=== PATIENT | male | born 1965 | race Hispanic/Latino ===

== ENCOUNTER 2018-09-02 11:43 | Day surgery (SDC) | payer BC ==
[2018-08-30 19:20] VITALS: BMI 26.9
[2018-09-02] MEDS ORDERED: Lactated Ringer's 1,000 ML IV ONE (12:37)
--- NOTE | 2018-09-02 12:54 | CP.SDSHP ---
Same Day Surgery H & P - History Proposed Procedure: Right peroneus brevis tendon repair and platelet rich plasma injection Pre-Op Diagnosis: Right peroneus brevis tear - Allergies Allergies: Allergies No Known Allergies Allergy (Verified 09/02/18 12:00) - Physical Exam Vital Signs: Vital Signs 09/02/18 09/02/18 12:12 12:17 Temperature 98.1 F Pulse Rate 68 60 Respiratory 20 Rate Blood Pressure 132/80 O2 Sat by Pulse 97 Oximetry Heart: WNL Lungs: WNL - {Optional Preform as Required} Ortho: Other (no pain with palpation of the right lateral ankle, pain with ROM of the ankle joint) - Date & Time Date: 09/02/18 Time: 12:57 Short Stay Discharge - Short Stay Discharge Admitting Diagnosis/Reason for Visit: M76.71 Disposition: HOME/ ROUTINE Additional Instructions (Diet, Activity): -Patient in good/stable condition for discharge home -Pt to resume medications per medical reconciliation -Resume regular diet -Please keep dressing clean, dry, & intact to surgical site -Use plastic bag over bandage for showering -Wear post op shoe at all times when ambulating -Call clinic if you see signs of infection (redness, swelling, malodor) -Please make an appointment to see Dr. Boone in office/clinic within 1 week for post-op check Progress Note/Discharge Note with Instructions: - Patient evaluated bedside in recovery s/p right foot surgery - After surgical procedure patient in NAD - (+) Void, (+) Appetite - Capillary refill time <3s and NVS intact. - Patient denies complaints at this time. - Post operative instructions and plan of care explained to patient at length. - Patient. acknowledges verbal understanding. - Patient stable for DC per podiatric surgery
[2018-09-02] MEDS ORDERED: Bupivacaine 0.25% Inj(30mL) IJ ONE (13:03)
[2018-09-02] MEDS ORDERED: ceFAZolin 1 GM in Sodium Chloride 0.9% 100 ML IVPB STA (13:03)
[2018-09-02] MEDS ORDERED: Lidocaine 1% Inj (20ml) IJ ONE (13:03)
--- NOTE | 2018-09-02 13:08 | CP.PCM.PN ---
Subjective - Date & Time of Evaluation Date of Evaluation: 09/02/18 Time of Evaluation: 12:50 - Subjective Subjective: 53 yo male patient presents to [facility] today for pre-operative evaluation R foot pain. Patient states that he has had multiple surgeries to the R ankle in the past. He relates that most of his pain his along the tendon around the outside of his ankle. This pain worsens with ambulation and when standing for long periods of time. He has sprained this ankle several times in the past and can feels his tendon rubbing on the outside of the ankle. Denies any other pedal complaints at this time. Objective - Vital Signs/Intake and Output Vital Signs (last 24 hours): Temp Pulse Resp BP Pulse Ox 98.1 F 60 20 132/80 97 09/02/18 12:12 09/02/18 12:17 09/02/18 12:12 09/02/18 12:12 09/02/18 12:12 - Medications Medications: Current Medications Bupivacaine HCl (Marcaine 0.25%) 20 ml IJ ONCE ONE Stop: 09/02/18 13:04 Cefazolin Sodium 1 gm/ Sodium (Chloride) 100 mls @ 100 mls/hr IVPB STAT STA; Protocol Stop: 09/02/18 14:02 Sodium Chloride (Sodium Chloride 0.9%) 1,000 mls @ 0 mls/hr IV .Q0M FABIENNE Stop: 09/03/18 13:04 Lidocaine HCl (Lidocaine 1% (20ml)) 20 ml IJ ONCE ONE Stop: 09/02/18 13:04 - Constitutional Appears: Well, Non-toxic, No Acute Distress - Extremities Exam Extremities Exam: absent: Calf Tenderness Additional comments: RLE focused exam: VASC- DP/PT pulses are palpable, cap refill < 3sec to all digits, skin temp wnl, neg edema NEURO- gross and protective sensation are intact DERM- well healed cicatrix is noted to distal-lateral aspect of lateral ankle, neg signs wounds or infection MSL: pedal muscle strength is 5/5 in all directions (DF,PF,eversion,inversion), tenderness noted along course of peroneus brevis tendon just posterior to lateral malleolus, slight tenderness noted to peroneus brevis on STJ inversion (passive, active and against resistance), neg evidence of subluxation of peroneal tendons. BIOMECHANICAL EXAM: Cavovarus foot type, RCSP: 2-3 degree inversion, NCSP: neutral AJ: 5 degrees DF with kneed extended and flexed STJ: 25 deg inversion, 10 degrees eversion Midtarsal joint: 4 degrees total excursion frontal plane and 4 degrees excursion in oblique 1st ray: +8mm excursion noted 1st MTPJ: 65 degrees DF GAIT EXAM: increased inversion noted through mid-stance, early heel lift R heel, increased inversion noted at time off, decreased arm swing noted R side - Neurological Exam Neurological Exam: Alert, Awake, Oriented x3 - Psychiatric Exam Psychiatric exam: Normal Affect, Normal Mood Assessment and Plan - Assessment and Plan (Free Text) Assessment: Synovitis and longitudinal tearing of peroneus brevis tendon R foot Plan: Patient S&E in SDS All questions and concerns addressed with patient Plan discussed with Dr. Boone Medical clearance is in the chart Will proceed for surgical repair of peroenus brevis tendon tear, PRP R foot with Dr. Boone Strict NWB RLE with crutches and posterior splint Pt to follow up with Dr. Boone in office 1 week
[2018-09-02] MEDS ORDERED: Sodium Chloride 0.9% 1,000 ML IV SCH (13:15)
[2018-09-02] MEDS ORDERED: Midazolam 2 MG/2 ML VIAL ONE (13:22)
[2018-09-02] MEDS ORDERED: Propofol 10 mg/ml Inj (20 ML) ONE (13:22)
[2018-09-02] MEDS ORDERED: Lidocaine 1% 5ml Abboject ONE (13:22)
[2018-09-02] MEDS ORDERED: Lidocaine 2% Jelly (5 ml) TOP ONE (13:23)
[2018-09-02] MEDS ORDERED: Bupivacaine 0.5% Inj(30mL) ONE (13:42)
[2018-09-02] MEDS ORDERED: Lidocaine 2% Inj (20ml) ONE (13:42)
[2018-09-02] MEDS ORDERED: Bupivacaine 0.5% Inj(30mL) INFIL ONE ×2 (14:15)
[2018-09-02] MEDS ORDERED: Lactated Ringer's 500 ML IV ONE (15:20)
--- NOTE | 2018-09-02 15:36 | PCM.SURG1 ---
Surgeon's Initial Post Op Note - Surgeon's Notes Surgeon: Dr. Boone Literature Professor: Jeremiah Renteria PGY3, Memo Fry PGY2 Type of Anesthesia: General LMA Anesthesia Administered By: Dr. Pack Pre-Operative Diagnosis: Right peroneus brevis tear Operative Findings: See operative report. m: 2-0 vicryl, 3-0 vicryl, 4-0 vicryl, 3-0 prolene. i: 6cc PRP, 10cc 0.5% Marcaine Post-Operative Diagnosis: same Operation Performed: Right repair of peroneus brevis tendon, PRP injection Specimen/Specimens Removed: n/a Estimated Blood Loss: EBL {In ML}: 1 Blood Products Given: N/A Drains Used: No Drains Post-Op Condition: Good Date of Surgery/Procedure: 09/02/18 Time of Surgery/Procedure: 15:36
[2018-09-02] MEDS ORDERED: Oxycodone/Acetaminophen 5/325 mg Tab PO PRN ×2 (15:38)
[2018-09-02] MEDS ORDERED: HYDROmorphone 0.5 mg/0.5 ml ISec IVP PRN (15:40)
[2018-09-02 15:48] VITALS: RESP 18
[2018-09-02 16:49] VITALS: O2SAT 98
[2018-09-02 18:10] VITALS: BP 140/88; PULSE 68; TEMP 98.2
--- NOTE | 2018-09-02 18:30 | CARD ---
APPROVED REPORT Date of service: 09/02/2018 EKG Measurement Heart [id number] <Conclusion> Normal sinus rhythm Normal ECG
--- NOTE | 2018-09-06 08:26 | OP ---
PROCEDURE DATE: 09/02/2018 PREOPERATIVE DIAGNOSIS: Tear of peroneus brevis tendon, right foot. POSTOPERATIVE DIAGNOSIS: Tear of peroneus brevis tendon, right foot. PROCEDURES PERFORMED: 1. Open repair of longitudinal tear of peroneus brevis tendon, right foot. 2. PRP injection of peroneus brevis tendon, right foot. SURGEON: Billy Boone DPM ASSISTANTS: Xenia Renteria DPM, PGY-3; Tiara Fry DPM, PGY-2. MIXER OPERATOR HOT METAL: Sung Pack MD ANESTHESIA: General LMA with local. INDICATIONS: The patient is a 53-year-old male with the above-mentioned diagnosis. The patient has exhausted all conservative treatments at this time and now is requesting surgical intervention. The patient signed the consent after careful explanation of all risks, benefits, complications, and alternatives for surgical procedure. No guarantees were given nor implied. Ancef 2 g IV was given to the patient prior to the procedure, n.p.o. status was confirmed prior to taking the patient to the operating room. PREPARATION: The patient was brought to the operating room and placed on the operating room table in the supine position. A well-padded pneumatic thigh tourniquet was placed to the patient's right thigh with plenty of Webril cast padding applied. Once local anesthesia was achieved, the right foot and ankle were then prepped and draped in the usual sterile manner. Esmarch bandage was utilized to exsanguinate the patient's right foot and ankle and the tourniquet was then inflated to 350 mmHg and the procedure was begun. DESCRIPTION OF PROCEDURE: PROCEDURE #1: OPEN REPAIR OF PERONEUS BREVIS TENDON TEAR, RIGHT FOOT: Our attention was then directed onto the lateral aspect of the patient's right foot. At the level of the lateral malleolus, a curvilinear incision measuring approximately 6 cm in length was made just posterior-inferior approximately 1 cm from lateral malleolus. Care was taken to avoid all vital neurovascular structures during the dissection and any bleeders were cauterized as necessary. The combination of blunt and sharp tissue dissection was utilized to deepen the level of the incision in the ruptured malleolar area. The incision was then deepened down to the level of the superior-inferior peroneal retinaculum, which was sharply incised and reflected medially and laterally, thus exposing the peroneus brevis tendon into view. At the level of the ruptured malleolar area, just posterior and inferior to the lateral malleolus, an approximately 1.5 cm linear longitudinal tear was noted within the peroneus brevis tendon. Any synovitis and hypertrophy of tissue from the tendon was resected and passed from the operative field. The surgical site was flushed with copious amounts of sterile normal saline solution. The tendon was then retubularized using 2-0 Vicryl suture in a running interlocking suture technique. Repair of the deformity appeared to be excellent at this time. The surgical site was again flushed with copious amounts of sterile normal saline solution. Next, the [place] machine was then used to ablate any synovitis within the tendon at this time. PROCEDURE #2: PRP INJECTION OF PERONEUS BREVIS TENDON, RIGHT FOOT: Next, approximately 15 mL of the patient's own blood was then utilized in order to spin the blood down using the Brain Sentry Centrifuge System to yield 6 mL of PRP solution. This PRP was then injected into the peroneus brevis at the level of the tear using all 6 mL provided. The surgical site was again flushed with copious amounts of sterile normal saline solution. The peroneal retinaculum was repaired using 2-0 Vicryl. The subcutaneous tissue was reapproximated using 3-0 Vicryl and the skin edges were reapproximated using 3-0 Prolene suture. Additional 10 mL of 0.5% Marcaine plain was then injected into the incision site. Postoperative bandages included Xeroform, 4x4's, Khurram, and a well-padded posterior splint with the foot placed in neutral position were then applied to the patient's right lower extremity. POSTOPERATIVE CONDITION: The patient tolerated the procedure and the anesthesia well with no apparent complications or complaints. The patient was escorted from the OR to the recovery room with vital signs stable and neurovascular status intact in the patient's right foot. The patient will be nonweightbearing with crutches. The patient will follow up with Dr. Boone in the office within 1 week. Xenia Renteria DPM Billy Boone DPM [facility] # [id number]
== END 2018-09-02 18:30 | disposition home or self-care (01) ==
LOC: H.OPSURG 11:43
PROVIDERS: ATTEND Podiatrist Foot & Ankle Surgery
DX: S86.311A Strain of muscle(s) and tendon(s) of peroneal muscle group at lower leg level, right leg, initial encounter (principal); M76.71 Peroneal tendinitis, right leg; X58.XXXA Exposure to other specified factors, initial encounter
CPT/HCPCS: 0232T; 25275; 93005; 97161; G8978; G8979; G8980; J0690; J2250; J2405; J2704; J3010; J7120